=== PATIENT | male | born 1980 | race African-American/Black ===

== ENCOUNTER 2022-01-25 01:14 | Emergency (ER) | payer MEDICAID ==
[~2022-01-25] VITALS: Ht 175.3 cm; Wt 82.0 kg
[2022-01-25 01:46] VITALS: BP 132/78
== END 2022-01-25 17:37 | disposition left against medical advice (07) ==
LOC: ER 01:14
DX: Z53.21 Procedure and treatment not carried out due to patient leaving prior to being seen by health care provider (principal)